=== PATIENT | female | born 1985 | race Caucasian/White ===

== ENCOUNTER 2017-10-03 23:15 | Emergency (ER) | payer MEDICAID ==
[~2017-10-03] VITALS: Ht 165.1 cm; Wt 65.0 kg
[~2017-10-03 23:15] MED LIST: DIPH25CA83 PO
[2017-10-03] MEDS ORDERED: ONDA8TAB6 PO (23:35)
[2017-10-03] MEDS ORDERED: CLON-529 PO (23:35)
[2017-10-03 23:43] VITALS: BP 124/77
== END 2017-10-03 23:44 | disposition home or self-care (01) ==
LOC: ER 23:16
DX: F11.23 Opioid dependence with withdrawal (principal); F11.10 Opioid abuse, uncomplicated; Z88.1 Allergy status to other antibiotic agents
CPT/HCPCS: 99283

== ENCOUNTER 2018-04-17 09:07 | Emergency (ER) | payer MEDICAID ==
[~2018-04-17] VITALS: Ht 165.1 cm; Wt 61.0 kg
[~2018-04-17 09:07] MED LIST changes: +CLON-529 PO; +ONDA8TAB6 PO
[2018-04-17 09:10] VITALS: BP 102/66
[2018-04-17] MEDS ORDERED: PERM60CR19 TP (10:16)
== END 2018-04-17 10:28 | disposition home or self-care (01) ==
LOC: ER 09:07
DX: R21 Rash and other nonspecific skin eruption (principal); B86 Scabies; F17.200 Nicotine dependence, unspecified, uncomplicated; Z88.1 Allergy status to other antibiotic agents; Z88.8 Allergy status to other drugs, medicaments and biological substances
CPT/HCPCS: 99282

== ENCOUNTER 2021-04-22 00:57 | Emergency (ER) | payer MEDICAID ==
--- NOTE | 2021-04-22 01:12 | NUR ---
Patient told registration they did not want to wait so they are leaving and going to [facility].
--- NOTE | 2021-04-22 01:20 | NUR ---
Patient not in waiting room.
== END 2021-04-22 01:27 | disposition left against medical advice (07) ==
LOC: ER 00:58
DX: L50.9 Urticaria, unspecified (principal); Z53.21 Procedure and treatment not carried out due to patient leaving prior to being seen by health care provider